=== PATIENT | female | born 1965 | race Caucasian/White ===

== ENCOUNTER 2016-08-25 12:23 | Emergency (ER) | payer MEDICAID ==
[2016-08-25] MEDS ORDERED: ONDANSETRON 4 MG VIAL ONE (13:12)
[2016-08-25] MEDS ORDERED: METOCLOPRAMIDE 10 MG/2 ML VIAL ONE (13:12)
[2016-08-25] MEDS ORDERED: DIPHENHYDRAMINE 50 MG/ML VIAL ONE (13:12)
[2016-08-25] MEDS ORDERED: KETOROLAC 30 MG/ML VIAL ONE (13:13)
[2016-08-25] MEDS ORDERED: SODIUM CHLORIDE 0.9% 1,000 ML ONE (13:13)
== END 2016-08-25 14:06 | disposition home or self-care (01) ==
LOC: ER 12:23
DX: G43.001 Migraine without aura, not intractable, with status migrainosus (principal)
CPT/HCPCS: 96361; 96374; 96375